=== PATIENT | male | born 1975 | race Caucasian/White ===

== ENCOUNTER 2017-10-25 15:11 | Inpatient (IN) | payer MEDICARE ==
[~2017-10-25] VITALS: Ht 182.9 cm; Wt 106.6 kg
[~2017-10-25 15:11] MED LIST: BAYER CHEWABLE81 MG PO; CARDURA4 MG PO; FUROSEMIDE40 MG PO; HYDRALAZINE HCL25 MG PO; ISOSORBIDE MONO30 M1 PO; LOSARTAN POTASS25 MG PO; LYRICA25 MG PO; NORCO 7.5/325 T1 TA1 PO; NORVASC5 MG PO; NOVOLOG100 U/M1 SC; TOPROL XL100 MG PO
--- NOTE | 2017-10-25 15:30 | NUR ---
RECEIVED PT TO ROOM 2131 FROM ADMISSIONS AAOX4 NAD NOTED NO IV LT AKA SCABBED AREAS NOTED TO RT HAND DRSG INTACT TO RT LOWER LEG
[2017-10-25 15:47] VITALS: BMI 31.9
[2017-10-25 16:18] VITALS: BP 148/77
[2017-10-25 19:00] VITALS: BP 130/90
[2017-10-25 19:09] LABS: BASOPHILS 0.7 % (0-2); EOSINOPHILS 1.8 % (0-7); HEMATOCRIT 33.3 % (42.0-54.0); HEMOGLOBIN 10.1 g/dL (13.5-17.5); IMMATURE GRANULOCYTES 0.2 % (0-5); LYMPHOCYTES 23.2 % (15-50); MCH 26.4 pg (26.0-34.0); MCHC 30.3 g/dL (31.0-37.0); MCV 87.2 fL (80.0-100.0); MEAN PLATELET VOLUME 9.6 fL (7.4-10.4); MONOCYTES 5.6 % (2-11); NEUTROPHILS 68.5 % (40-80); PLATELET COUNT 512 10x3/uL (130-400); RBC 3.82 10x6/uL (4.20-6.10); RDW 15.3 % (11.5-14.5); WBC 10.9 10x3/uL (4.8-10.8)
[2017-10-25 19:24] LABS: INR 1.06 (0.85-1.17); PROTIME 13.7 SECONDS (11.6-15.0)
[2017-10-25 19:33] LABS: ANION GAP 16.8 mmol/L (8-16); CALCIUM 8.7 mg/dL (8.5-10.1); CARBON DIOXIDE 25.7 mmol/L (21.0-32.0); CREATININE - SERUM 6.6 mg/dL (0.6-1.3); POTASSIUM - SERUM 4.5 mmol/L (3.5-5.1)
--- NOTE | 2017-10-25 19:57 | NUR ---
CALL PLAED TO SURESH BLANC TO VERIFY HEPARIN ORDERS.
[2017-10-25] MEDS ORDERED: NEURONTIN 300300 MG PO (20:27)
--- NOTE | 2017-10-25 20:36 | NUR ---
SECOND PAGE OUT TO SURESH BLANC FOR ORDER CLARIFICATION.
--- NOTE | 2017-10-25 21:04 | NUR ---
HEPARIN ORDER CLARIFIED, HEPARIN ORDERED FOR HD, HEPARIN DRIP DC'D.
--- NOTE | 2017-10-25 21:55 | NUR ---
HS MEDS GIVEN WITH FRESHI ICE WATER, BS 115. NO COVERAGE GIVEN PER S/S. HS SNACK PROVIDED.
[2017-10-26 01:21] VITALS: BP 161/86
--- NOTE | 2017-10-26 03:34 | NUR ---
RESTING WITH EYES CLOSED, RESPERATIONS EVEN, NO S/S DISTRESS NOTED.
[2017-10-26 04:00] VITALS: BP 146/72
--- NOTE | 2017-10-26 07:30 | NUR ---
DRSG CHANGED TO RT LOWER LEG AT THIS TIME WOUND BED RED AND BEEFY IN COLOR NO FOUL ODOR OR EXCESSIVE WARMTH NOTED DRESSED WITH NS WTD DRSG PT TOLERATED WELL
--- NOTE | 2017-10-26 07:46 | NUR ---
AM ROUNDING- RECEIVED REPORT FROM DICE MANAGER NURSE CATHY. PT IS CURRENTLY SITTING IN WHEELCHAIR BY DOOR IN ROOM. NPO CURRENTLY FOR PROCEDURE TODAY. ON ROOM AIR. NO MONITOR. IV SEEN TO LEFT HAND THAT IS CURRENTLY SALINE LOCKED. RESERVE RIGHT ARM FOR AVF. LEFT AKA SEEN. PER SPENSER ACHARYA, APPLIANCE REPAIR TECHNICIAN, PT IS SUPPOSE TO GO TO DIALYSIS THIS AM. WILL CONTINUET TO MONITOR AND CONTINUE WITH PLAN OF CARE.
[2017-10-26 12:09] VITALS: BP 150/85
--- NOTE | 2017-10-26 12:12 | NUR ---
PT IN ROOM NOW. FSBS TAKEN ORDERED. BS IS 64. THIS NURSE WENT INTO PTS ROOM. PT IS DRINKING SMALL CONTAINER OF ORANGE JUICE. THIS NURSE STATES TO PT HE IS NPO FOR PROCEDURE. PT REPLIES "I KNOW I JUST DIDN'T KNOW WHAT ELSE TO DO". PT INFORMED ME AT THIS TIME THAT HE FORGOT ABOUT HIS INSULIN PUMP AND ASKED ME IF HE NEEDED TO TAKE IT OFF. THIS NURSE WAS NOT MADE AWARE THAT PT HAS INSULIN PUMP. PT TAKES OFF INSULIN PUMP (PT IS NPO CURRENTLY FOR PROCEDURE). WILL CONTINUE TO MONITOR AND CHECK PTS BS.
[2017-10-26 13:10] VITALS: Ht 182.9 cm; Wt 106.6 kg
--- NOTE | 2017-10-26 14:10 | NUR ---
BEATRIZ, DATA WAREHOUSE ANALYST INFORMED ME TO PRE-OP PT. I WAS GIVING PTS PRE-OP MEDICATIONS THROUGHT IV TO LEFT FOREARM (RESERVE RIGHT ARM FOR AVF), NOTICED IV IS INFILATRATED. OR TECH ON FLOOR AND INFORMED OF THIS. OR TECH ALSO INFORMED PT HAD DRANK ORANGE JUICE PRIOR ON SHIFT (APPROX 3 HOURS AGO) THAT WAS GIVEN TO HIM BY WHEEL MOLDER. EKG DONE. SPENSER WALTON, HUMAN CAPITAL MANAGER DID PRE-OP CHECKLIST. IV FLUID HUNG AND TUBING PRIMED. OR TECH INFORMED PT HAS HAD ROBINUL PO JUST NOT REGLAN NOR PEPCID IV. PT TO OR VIA BED.
[2017-10-26 17:51] VITALS: BP 125/68
--- NOTE | 2017-10-26 18:04 | NUR ---
PT BACK FROM OR VIA BED. PT IS ALERT AND ORIENTED. ON ROOM AIR. SLING SEEN TO PTS LEFT ARM FROM PROCEDURE. OR NURSE HERE IN ROOM STATES PT CAN TAKE SLING OFF. HEPARIN DRIP STARTED PER DR. JEREMIAS CALL. HEPARIN FLOWSHEET STARTED. VITAL SIGNS ARE BEING TAKEN NOW PER PROTOCOL. PT IS SITTING UP ON SIDE OF BED EATING DINNER TRAY. MOTHER IS AT BEDSIDE. WILL AWAIT PT TO GET DONE EATING. WILL DO DRESSING CHANGE PER DR. MCDOWELL NURSING MESSAGE. WILL CONTINUE TO MONITOR.
--- NOTE | 2017-10-26 18:32 | NUR ---
DID DRESSING CHANGE TO RIGHT HAND NECTROTIC AREAS PER DR. MCDOWELL NURSING MESSAGE. CLEANED NECTROTIC AREA TO RIGHT HAND WITH HIBACLENS ENVIRONMENTAL PROFESSIONAL. WASHED WITH GAUZE AND WATER. SILVADENE CREAM APPLIED TO NECTROTIC AREAS ORDERED. COVERED SITE WITH 4X4 GUAZE PADS AND SECURED WITH TAPE. VITAL SIGNS ARE BEING TAKEN PER PROTOCOL. PT DENIES ANY NEED AT THIS TIME. MOTHER IS AT BEDSIDE. WILL CONTINUE TO MONITOR.
[2017-10-26 20:00] VITALS: BP 154/55
--- NOTE | 2017-10-26 21:22 | NUR ---
HS MEDS GIVEN WITH FRESH ICE WATER, BS 155, NO COVERAGE GIVEN AT THIS TIME DUE TO PT BEING NPO ALL DAY FOR PROCEDURE. HS SNACK PROVIDED. NORCO 1 TAB GIVEN FOR C/O PAIN TO RIGHT ARM AND RIGHT LEG.
--- NOTE | 2017-10-27 00:22 | NUR ---
LEAD CYTOGENETIC TECHNOLOGIST AT BED SIDE TO OBTAIN VITALS.
[2017-10-27 01:11] VITALS: BP 151/56
--- NOTE | 2017-10-27 01:44 | NUR ---
PT AWAKE, ALERT, ORIENTED, SITTING UP IN HIS WHEELCHAIR, AUTOMOBILE RADIO REPAIRERDami VIVAS IN THE ROOM. PTS IV HAS BEEN ALERTING R/T BEING OCCLUDED ON PTS SIDE. I FLUSHED IV TO LT AC WITHOUT ANY DIFFICULTY AND RESET PTS HEPARIN GTT. PT DENIES ANY NEEDS. WILL CONTINUE TO MONITOR PT CLOSELY.
--- NOTE | 2017-10-27 03:43 | NUR ---
WASTE MINIMIZATION TECHNICIAN AT BED SIDE, BATH AND LINEN CHANGE COMPLETE.
[2017-10-27 04:29] VITALS: BP 104/76
[2017-10-27 05:21] LABS: BASOPHILS 1.1 % (0-2); EOSINOPHILS 2.7 % (0-7); HEMATOCRIT 30.4 % (42.0-54.0); IMMATURE GRANULOCYTES 0.1 % (0-5); LYMPHOCYTES 26.4 % (15-50); MCH 26.1 pg (26.0-34.0); MCHC 29.6 g/dL (31.0-37.0); MCV 88.1 fL (80.0-100.0); MEAN PLATELET VOLUME 9.9 fL (7.4-10.4); MONOCYTES 6.7 % (2-11); PLATELET COUNT 457 10x3/uL (130-400); RBC 3.45 10x6/uL (4.20-6.10); RDW 15.6 % (11.5-14.5); WBC 9.6 10x3/uL (4.8-10.8)
--- NOTE | 2017-10-27 05:56 | NUR ---
PT SITTING UP IN CHAIR, NORCO 1 TAB GIVEN FOR C/O PAIN TO INCISION. NO OTHER NEEDS EXPRESSED AT THIS TIME, CL IN REACH.
[2017-10-27 05:58] LABS: ANION GAP 18.1 mmol/L (8-16); CALCIUM 8.5 mg/dL (8.5-10.1); CARBON DIOXIDE 23.3 mmol/L (21.0-32.0); CREATININE - SERUM 6.5 mg/dL (0.6-1.3)
[2017-10-27 06:16] LABS: POTASSIUM - SERUM 6.4 mmol/L (3.5-5.1)
--- NOTE | 2017-10-27 07:30 | NUR ---
AM ROUNDS COMPLETED. INTRODUCED MYSELF TO PT PRIMARY RN FOR TODAYS SHIFT. PT A&O SITTING UP IN BED RESTING QUIETLY. PT DENIES ANY CURRENT PAIN OR NEEDS AT THIS TIME. CL IN REACH, BED IN LOWEST, SIDE RAILS X2. WILL CPOC.
[2017-10-27 08:23] VITALS: BP 147/68
--- NOTE | 2017-10-27 09:11 | NUR ---
PT LEAVING FOR DIALYSIS AT THIS TIME.
--- NOTE | 2017-10-27 09:35 | NUR ---
MORNING MEDS HELD PER RENAL EXTRUSION DIE REPAIRER MIKHAIL AND WILL CULTURE WOUND AND DO DRSG CHANGES WHEN HE RETURNS FROM DIALYSIS. NO CURRENT NEEDS.
--- NOTE | 2017-10-27 10:42 | NUR ---
PT CALLED FROM DIALYSIS REQUESTING SOMETHING FOR PAIN. ITS TOO EARLY FOR PRN PAIN MEDICATION. HERE AND GAVE NEW ORDERS FOR PAIN MEDS. WILL BRING TO PT IN DIALYSIS.
--- NOTE | 2017-10-27 13:21 | NUR ---
PT BACK FROM DIALYSIS. INITIATED IVPB VANCOMYCIN AND PROVIDED PT WITH PRN PAIN MEDICATION REQUESTED. PT EATING LUNCH THEN WILL HAVE HIS WOUNDS DRESSED AND MEDICATED. PT VOICED THANKS AND DENIES ANY FURTHER NEEDS AT THIS TIME. CL IN REACH. WILL CPOC.
[2017-10-27 14:34] LABS: ANION GAP 13.9 mmol/L (8-16); CALCIUM 8.8 mg/dL (8.5-10.1); CARBON DIOXIDE 28.6 mmol/L (21.0-32.0); PHOSPHOROUS 5.2 mg/dL (2.5-4.9)
[2017-10-27 14:39] LABS: POTASSIUM - SERUM 4.5 mmol/L (3.5-5.1)
--- NOTE | 2017-10-27 14:52 | NUR ---
WOUND CARE DONE TO R.HAND. SILVER OINTMENT APPLIED TO NECROTIC SCABS TO R.HAND FINGERS AND NITRO BID PLACED ON R.HAND ORDERED. DOPPLERED R.BRACHIAL PULSE. PT SITTING UP IN W/C RESTING. PROVIDED PT WITH PRN PAIN MEDICATION ORDERED. PT HOPING TO BE RELEASED TOMORROW RR NONLABORED ON RA. CL IN REACH. WILL CPOC.
[2017-10-27 16:13] VITALS: BP 101/59
--- NOTE | 2017-10-27 17:57 | NUR ---
FSBS 232 PT REC'D 8 UNITS SS INSULIN. PT SITTING UP IN W/C WATCHING TV AND STATES HE IS FEELING PRETTY GOOD OVERALL. CL IN REACH. NO CURRENT NEEDS. WILL CPOC.
--- NOTE | 2017-10-27 19:14 | NUR ---
PROVIDED PT WITH PRN PAIN MEDICATION. PT RESTING IN W/C WITH FAMILY AT BEDSIDE DENIES ANY FURTHER NEEDS AT THIS TIME. SHIFT REPORT GIVEN TO NIGHTSHIFT NURSE.
[2017-10-27 21:32] VITALS: BP 128/70
--- NOTE | 2017-10-27 23:26 | NUR ---
Dialysis Coordinator: [facility] pm shift. NIDA ARITA.
[2017-10-28 02:21] VITALS: BP 116/63
--- NOTE | 2017-10-28 03:13 | NUR ---
MANAGER RETAIL SALES AT BEDSIDE TO OBTAIN VITALS, CALL LIGHT IN REACH. WILL CONTINUE WITH PLAN OF CARE.
[2017-10-28 05:50] LABS: BASOPHILS 0.8 % (0-2); HEMATOCRIT 31.9 % (42.0-54.0); HEMOGLOBIN 9.5 g/dL (13.5-17.5); IMMATURE GRANULOCYTES 0.1 % (0-5); LYMPHOCYTES 32.6 % (15-50); MCH 25.9 pg (26.0-34.0); MCHC 29.8 g/dL (31.0-37.0); MCV 86.9 fL (80.0-100.0); MEAN PLATELET VOLUME 10.1 fL (7.4-10.4); NEUTROPHILS 54.5 % (40-80); PLATELET COUNT 409 10x3/uL (130-400); RBC 3.67 10x6/uL (4.20-6.10); RDW 15.4 % (11.5-14.5); WBC 9.2 10x3/uL (4.8-10.8)
[2017-10-28 06:05] LABS: ANION GAP 16.2 mmol/L (8-16); CALCIUM 8.6 mg/dL (8.5-10.1); CARBON DIOXIDE 27.5 mmol/L (21.0-32.0); CREATININE - SERUM 6.1 mg/dL (0.6-1.3); POTASSIUM - SERUM 4.7 mmol/L (3.5-5.1)
[2017-10-28 06:19] VITALS: BP 130/70
--- NOTE | 2017-10-28 06:23 | NUR ---
DRESSING CHANGE ON RIGHT CALF. WET TO DRY WITH NS . WOUND IS BEEFY RED WITH LIGHT YELLOW CENTER. NO TUNNELING SEEN. CLEANSED FIRST WITH MICROKLENZ WOUND CLEANSING SPRAY IN ROOM. PATIENT TOLERATED WELL.
[2017-10-28 07:52] VITALS: BP 141/78
--- NOTE | 2017-10-28 08:11 | NUR ---
AM ROUNDS COMPLETED. INTRODUCED MYSELF TO PT PRIMARY RN FOR TODAYS SHIFT. PT SITTING UP ON EDGE OF BED ABOUT TO EAT BREAKFAST. PT REFUSED HIS MORNING BP PILLS AND STATES HE DOESNT TAKE BEFORE DIALYSIS. PT HOPING TO BE DISCHARGED TODAY AFTERWARDS. PROVIDED PT WITH PRN PAIN MEDICATION FOR R.HAND PAIN. PT VOICED THANKS AND DENIES ANY FURTHER NEEDS AT THIS TIME. CL IN REACH, BED IN LOWEST, SIDE RAILS X2. WILL CPOC.
--- NOTE | 2017-10-28 11:43 | NUR ---
AT BEDSIDE AND AGREED TO D/C PT. PT NOT WANTING DIALYSIS TODAY R/T GOING THE PAST 2 DAYS AND HE THINKS HE IS DRY, WILL HOLD OFF TODAY AND RESUME NORMAL SCHEDULE TUTHSAT AT HIS HOME DIALYSIS CENTER. PT VOICED THANKS AND DENIES ANY FURTHER NEEDS. WILL AWAIT DISCHARGE ORDERS.
[2017-10-28 12:30] VITALS: BP 100/53
--- NOTE | 2017-10-28 13:45 | NUR ---
D/C PTS L.AC PIV WITH CATHETER TIP FULLY INTACT. PT COLLECTED HIS BELONGINGS AND HIS SON IS HERE FOR TRANSPORTATION. DISCHARGE TEACHING PROVIDED AND PAPERS SIGNED. PT REC'D HIS COPY ALONG WITH HIS HARD SCRIPT FOR HYDROCODONE. PT DENIES ANY FURTHER QUESTIONS OR CONCERNS AND IS NOW LEAVING.
--- NOTE | 2017-10-28 16:53 | NUR ---
Patient Name: CLINTON PARKER Admission Status: Elective Accout number: [id number] Admission Date: 10-25-2017 : 1975 Admission Diagnosis: Attending: TAN DIAZ Current LOS: 3 Anticipated DC Date: 10-28-2017 Planned Disposition: Home with Home Health Primary Insurance: MEDICARE A & B PLANNED EXTERNAL PROVIDER: [employer] [facility] LATE ENTRY: Discharge Planning Comments: * Is the patient Alert and Oriented? Yes 0 * How many steps to enter\exit or inside your home? NONE 0 * PCP DR. HOWE 0 * Pharmacy [facility], [address] * Preadmission Environment Home with Family 0 * ADLs Independent 0 * Equipment Back Brace Glucometer Shower Chair Wheelchair 0 * Other Equipment NO MEDICAL EQUIPMENT PROVIDER PREFERENCE 0 * List name and contact numbers for known caregivers / representatives who currently or will assist patient after discharge: HALEY PARKER, SPOUSE, 0 * Community resources currently utilized Home Health , OTHER 0 * Please name any agencies selected above. [facility], [facility], TTS, 1200, [facility] 0 * Additional services required to return to the preadmission environment? No 0 * Can the patient safely return to the preadmission environment? Yes 0 * Has this patient been hospitalized within the prior 30 days at any hospital? Yes 0 CM MET WITH PT IN ROOM TO DISCUSS DISCHARGE PLANNING AND NEEDS. PT REPORTS LIVING AT HOME INDEPENDENTLY WITH SPOUSE. PT HAS ALL NEEDED EQUIPMENT AT HOME AND NO MEDICAL EQUIPMENT PROVIDER PREFERENCE. PT HAS [employer] [facility] FOR NURSING WOUND CARE AND SEE'S DR. RICO AT WOUND CARE CLINIC. CM DISCUSSED AVAILABILITY OF HOME HEALTH, REHAB SERVICES AND MEDICAL EQUIPMENT. PT DENIES DISCHARGE NEEDS OTHER THAN [employer] HOME HEALTH RESUMPTION, REPORTS HIS SON WILL PICK HIM UP FOR DISCHARGE HOME. PT REPORTS OUTPATIENT DIALYSIS AT [facility], TTS [address], SON DRIVES HIM. IMPORTANT MESSAGE FROM MEDICARE PROVIDED AND EXPLAINED. CM CALLED [facility] [facility], , NOTIFIED OF NEW WOUND CARE ORDERS, FAXED DISCHARGE INFORMATION TO [employer] AT [phone]; [employer] TO RESUME TOMORROW. Account Services Coordinator: Gilmar Kamara
--- NOTE | 2017-10-31 14:42 | DS ---
PATIENT:CLINTON PARKER :[birth year] MEDICAL RECORD: [id number] DISCHARGE SUMMARY ADMISSION DATE: 10/25/17 DISCHARGE DATE: 10/28/17 REASON FOR ADMISSION: Ischemic right hand with ischemia changes status post banding of his fistula. HOSPITAL COURSE: He is ready to go home, does not want any further dialysis, is on Wednesday, , and Wednesday schedule and I asked him to be careful with his potassium as he did require urgent dialysis twice to remove his potassium. We will continue all of his home medications with the addition of nitro paste for his hand. We will see if we can restart him in database and provide him with hydrocodone for p.r.n. pain. Otherwise, all of his medications are the same. He is alert and oriented times 3. Regular rhythm. S1 and S2. Clear lungs, clear nares. Right hand as noted on admission is unchanged, but pain is controlled. Lab is consistent with ESRD. He will continue renal diet and he will follow up at dialysis. Blood pressure 141/78, 18 respiratory rate, 68 pulse, return to the hospital for any problems. Stable on discharge. More than 30 minutes spent on this discharge. TRANSINT:[id number] Voice Confirmation ID: [id number] DOCUMENT ID: [id number] DIANE DALTON MD at 1442 CC: [id number] DICTATION DATE: 10/28/17 1144 TREE SPECIALIST: 10/28/17 1310 DIS IN 10/28/17 [facility] [address] [place] [address]
--- NOTE | 2017-11-06 15:06 | OP ---
PATIENT NAME: CLINTON PARKER MEDICAL RECORD: [id number] :[birth year] LOCATION:D. D.2132 ADMISSION DATE:10/25/17 SURGEON: JAYASHREE REAL MD DATE OF OPERATION: 10/26/2017 REFERRED BY: Dr. Nolberto Preston. PREOPERATIVE DIAGNOSES: Ischemic gangrenous ulcerations on the fingers of the right hand secondary to steal syndrome from right brachiobasilic AV fistula. POSTOPERATIVE DIAGNOSES: Ischemic gangrenous ulcerations on the fingers of the right hand secondary to steal syndrome from right brachiobasilic AV fistula. ADDITIONAL DIAGNOSES: End-stage renal disease, dependence on hemodialysis and atherosclerotic peripheral arterial disease with gangrene. OPERATION PERFORMED: Fistulogram of right arm brachiobasilic fistula and selective catheterization of the brachial artery and selective brachial arteriogram and Laughlin banding of the AV fistula. SURGEON: Jayashree Real MD ANESTHESIA: Nerve block plus general with LMA per PHONE TRIAGE SPECIALIST. PREOPERATIVE NOTE: Mr. Parker is a 42-year-old white male diabetic with end-stage renal disease and peripheral arterial disease who I believe is still smoking some and I constructed a right upper extremity brachial artery to translocated basilic vein AV fistula about a year ago. Recently, he has had pain in the right hand and developed a gangrenous ulceration on several fingers. Dr. Preston performed angiography on him this week, which demonstrated severe steal and he was admitted to the hospital and I was consulted. He is brought to the operating room at this time to try to salvage the fistula and the hand with a flow restricting procedure. I planned to do a Laughlin banding. This will require repeat fistulogram and repeat selective brachial artery arteriogram before and after the banding and during the banding procedure to guide the extent and number of ligatures to be applied to the basilic vein. Under anesthesia in supine position, the patient was prepped and draped in sterile manner. I examined him with a duplex ultrasound and then placed an obliquely oriented incision directly over the just arterial segment of the fistula. The subcutaneous tissues were divided to expose the fistula, which was carefully dissected circumferentially. I then accessed the fistula in a retrograde direction using micropuncture technique from a site about midway between the arterial and venous ends and I placed a 6-Emirati introducer and advanced a Glidewire through the fistula and passed it upwards into the brachial artery. I passed an angled glide catheter then up into the brachial artery and performed digital subtraction angiography which demonstrated no obstructive lesions or stenoses in the brachial artery and very sluggish poor flow distally in the radial and ulnar arteries with good flow in the fistula. The contrast was injected then through the port with subtraction angiography which completed the examination of the fistula with no specific lesions found. I then inserted a Cordis 4 mm diameter angioplasty balloon and positioned it under fluoroscopy within that just arterial anastomotic segment, it was inflated and held at 10 atmospheres of pressure and a 2-0 Prolene ligature was placed OPERATIVE REPORT [id number] CLINTON PARKER around it and tied snugly. After that, the balloon was deflated and removed and the glide catheter reinserted over the Glidewire and again another selective brachial artery arteriogram performed. This revealed much improved filling of the proximal radial and ulnar arteries. However, filling in the hand was disappointing and this may have been related to the patient's hypotension at that time as an effect of the anesthetic. At any rate, I went ahead and placed a second ligature about a centimeter and a half from the original one again tying it down over the 4-mm balloon inflated and held at 10 atmospheres of pressure. A repeat selective brachial arteriogram was much improved. I did not repeat the specific hand imaging as I felt I done all I could at this point and I think that we will now take more of a evox-oam-kjf attitude. The hardware was removed, the 6-Emirati introducer. The puncture site closed with a iuflgx-ia-xqowc 4-0 Prolene and hemostasis obtained there with a short period of direct pressure. The larger incision was closed with a few interrupted inverted 3-0 Vicryl and then running intracuticular 4-0 Monocryl, Dermabond glue, and dressed with Maxorb AG and Tegaderm with Cavilon skin prep. The patient at that point was awakened and taken to the recovery room in stable condition with a functioning fistula. I did examine him with handheld continuous wave Doppler and noted the presence of polyphasic flow in the radial artery at the wrist. My hand was pink, but I could not detect flow in the palmar arch, this, however, again was when the patient was relatively hypotensive with systolic of about 100-110 under anesthesia. PLAN: We will continue to treat the patient in the hospital. Continue his antibiotics. We will be a little more aggressive with some topical wound care with daily Hibiclens washes and Silvadene dressings, continue the use of nitroglycerin ointment at the base of the fingers, and I will start him on Trental 400 mg 3 times a day and for now, leave him on a continuous heparin drip at 1000 units per hour and we will await and see. There was no blood loss during the procedure and all sponges, instruments, and needles were accounted for. No drain was used and no surgical specimen was submitted. TRANSINT:[id number] Voice Confirmation ID: [id number] DOCUMENT ID: [id number] JAYASHREE REAL MD at 1506 CC: [id number] DICTATION DATE: 10/26/17 170 PAPER CUP MACHINE OPERATOR: 10/26/17 184 DIS IN 10/28/17 [address] [place] [address]
== END 2017-10-28 13:52 | disposition home health service (06) | DRG 252 ==
LOC: D.M2 15:11
PROVIDERS: Internal Medicine Nephrology; Surgery; ADMIT Internal Medicine
PROC: 5A1D70Z Performance of Urinary Filtration, Intermittent, Less than 6 Hours Per Day (ICD-10-PCS; 2017-10-25)
PROC: B3111ZZ Fluoroscopy of Right Brachiocephalic-Subclavian Artery using Low Osmolar Contrast (ICD-10-PCS; 2017-10-26)
PROC: B51W1ZZ Fluoroscopy of Dialysis Shunt/Fistula using Low Osmolar Contrast (ICD-10-PCS; principal; 2017-10-26 14:00)
PROC: 03V Upper Arteries, Restriction (ICD-10-PCS; 2017-10-26 14:00)
DX: T82.898A Other specified complication of vascular prosthetic devices, implants and grafts, initial encounter (principal); N18.6 End stage renal disease; I12.0 Hypertensive chronic kidney disease with stage 5 chronic kidney disease or end stage renal disease; Y83.8 Other surgical procedures as the cause of abnormal reaction of the patient, or of later complication, without mention of misadventure at the time of the procedure; E11.622 Type 2 diabetes mellitus with other skin ulcer; L98.499 Non-pressure chronic ulcer of skin of other sites with unspecified severity; E11.22 Type 2 diabetes mellitus with diabetic chronic kidney disease; Z99.2 Dependence on renal dialysis; Z89.612 Acquired absence of left leg above knee; E11.40 Type 2 diabetes mellitus with diabetic neuropathy, unspecified; Z79.4 Long term (current) use of insulin; E87.5 Hyperkalemia; Z72.0 Tobacco use

== ENCOUNTER 2018-01-16 15:38 | Inpatient (IN) | payer OTHER, MEDICARE ==
[~2018-01-16] VITALS: Ht 182.9 cm; Wt 101.6 kg
--- NOTE | ~2018-01-16 | DS ---
PATIENT:CLINTON PARKER :[birth year] MEDICAL RECORD: [id number] DISCHARGE SUMMARY ADMISSION DATE: 01/16/18 DISCHARGE DATE: 01/27/18 This is a discharge dated 01/27/2018 from inpatient rehab. PRIMARY DIAGNOSIS: Decreased functional ability and ability to provide activities of daily living secondary to a left gmbnu-xkb-cstt amputation. SECONDARY DIAGNOSES: 1. Severe peripheral vascular disease. 2. End-stage renal disease, on hemodialysis. 3. Abdominal cellulitis around peritoneal dialysis catheter site. 4. Diabetes. 5. Congestive heart failure. 6. Subclavian steal syndrome. 7. Right lower extremity wounds. 8. Right upper extremity wounds. 9. Depression. 10. Hypertension. 11. Hyponatremia. 12. Anemia of chronic disease. 13. Peripheral neuropathy. 14. Coronary artery disease. 15. Tobacco abuse. CONSULTS THIS HOSPITALIZATION: 1. Orthopedics with Dr. Thacker. 2. Nephrology following with Dr. Lea. HOSPITAL COURSE: Full H&P is located elsewhere on the chart on this 42-year-old male who was admitted to inpatient rehab for physical therapy and occupational therapy to improve gait, transfer skills, bed mobility, and activities of daily living to a modified independent level. He was evaluated by PT and OT and their plans of care were followed. He required senior living care for observation and assessment, medication administration, as well as wound care and monitoring of surgical incisions. He remained on appropriate home medications during this hospitalization. Fingerstick blood sugars were monitored with appropriate adjustment in medications as needed. He continued on 3 times weekly hemodialysis and was followed by nephrology. He developed some abdominal wall cellulitis and some knee pain. Orthopedics was consulted to evaluate the knee pain. No surgical intervention was recommended. He was cooperative with therapies, progressing towards goals, learning to use the left lower extremity prosthesis. He developed significant purulent drainage from his abdominal catheter site and was transferred back to the acute facility for a higher level of care. He was cooperative with therapies, progressing towards goals prior to discharge. DISCHARGE MEDICATIONS: As per discharge medication reconciliation. DISCHARGE DISPOSITION: The patient is discharged back to the acute hospital. He will continue his current diet and level of activity. He will follow with specialists and primary care in the acute facility. At least 30 minutes was spent in this discharge activity. DISCHARGE SUMMARY REPORT [id number] CLINTON PARKER TRANSINT:[id number] Voice Confirmation ID: [id number] DOCUMENT ID: [id number] Dictated By: CARLA CORREA I have interviewed/examined the above patient and agree with these documented findings. ASIA HOWE MD at 1344 at 1344 CC: [id number] DICTATION DATE: 02/27/181821 DIRECTOR CLINICAL PHARMACOLOGY: 02/28/18 0144 DIS IN 01/27/18 [id number] [place] [address]
--- NOTE | ~2018-01-16 | RHP ---
PATIENT: CLINTON PARKER MEDICAL RECORD: [id number] ACCOUNT: [id number] LOCATION:[facility]1119 : 71 ADMISSION DATE: 01/16/18 REHABILITATION HISTORY AND PHYSICAL EXAMINATION POST ADMISSION PHYSICIAN EXAMINATION POST ADMISSION PHYSICAL EXAMINATION AND HISTORY AND PHYSICAL DATE OF ADMISSION TO THE REHAB: 01/16/2018 ADMITTING DIAGNOSES: Left AKA secondary to severe peripheral arterial and peripheral vascular disease. HISTORY OF PRESENT ILLNESS: The patient is a 42-year-old gentleman admitted for an AKA secondary to peripheral vascular disease and peripheral arterial disease approximately 3 months ago, he developed a nonhealing wound to his left leg that became gangrenous and resulted in a left AKA. He has a past medical history of end-stage renal disease, hemodialysis dependence, diabetes, peripheral vascular disease, peripheral arterial disease and CHF. He has had dialysis 3 times a week here on Wednesday, and Wednesday. Over the past few weeks, he developed some severe pain in his right hand. He developed ulcerations to his second, third and fourth fingers of that hand. He had angiography that showed definitive findings of significant subclavian steal syndrome. Recently he was hospitalized with influenza at [facility]. He has got open wounds on his right lower extremity that [facility] has been dressing and working with. He has also had dressing changes to his right great toe, anterior and posterior right lower extremity and right fourth finger with Dakin's. He is currently wheelchair bound and unable to perform his ADLs without assist. He was recently fitted for and now has a left AKA prosthesis. He is ready to begin intensive therapy to return back to his prior level of function with this and become more independent while maintaining stability and with all of his other conditions he has got going on at this time. COMORBIDITIES: Include diabetes, kidney failure, renal dialysis dependence, end-stage renal disease, steal syndrome, CHF, peripheral arterial disease, peripheral vascular disease, open wounds, depression, history of ID in the past and nicotine dependence. PAST MEDICAL HISTORY: End-stage renal disease, diabetes, hemodialysis dependence, coronary artery disease, peripheral vascular disease and peripheral arterial disease. PAST SURGICAL HISTORY: Includes a left AKA and coronary artery bypass grafting. ALLERGIES: No known drug allergies. MEDICATIONS: Current medications include heparin, he is on a pump. He is on Dakin's to apply to wound areas, Bactroban ointment to apply as necessary, Procrit 40,000 units weekly, Zestril 10 mg daily. He is on Protonix 40 mg b.i.d., Monistat as needed, metoprolol 100 mg b.i.d., Rosalie 10/325 one q.6 hours p.r.n., Colace 100 mg b.i.d., Lyrica 50 mg b.i.d. and MiraLax 17 grams in 8 ounces of water daily. HABITS: Does have a history of tobacco use. HISTORY AND PHYSICAL [id number] CLINTON PARKER FAMILY HISTORY: Noncontributory. SOCIAL HISTORY: The patient hopes to return back home and get back to his prior level of functioning. REVIEW OF SYSTEMS: GENERAL: He does complain of some weakness. HEENT: He denies cold, cough, or congestion. CARDIOVASCULAR: Denies chest pain. PHYSICAL EXAMINATION: VITAL SIGNS: Stable, afebrile. GENERAL: A well-developed gentleman in no acute distress, alert upon exam. HEENT: Normocephalic and atraumatic. Mucosa moist. NECK: Supple. No lymphadenopathy. LUNGS: Clear at this time. HEART: Regular rate and rhythm. ABDOMEN: Benign. EXTREMITIES: He does have some well demarcated ulcerations to his hand and also to his leg. He does have a noted AKA. LABORATORY DATA: White count is 12.1, H&H of 10 and 33, and platelet count was noted to be 363. His sodium is 131, potassium 4.6, BUN and creatinine of 50 and 10, and blood sugar is 100. ASSESSMENT: This is a 42-year-old gentleman who is admitted to rehab with a working diagnosis of left AKA. The patient has potential to make improvement. We instituted the following multidisciplinary therapies including to, but not limited to physical, occupational, respiratory, speech, nutritional services, prosthetics and orthotics. Given his complex condition and risk for more complications, rehabilitation services cannot be provided at a lower level of care such as half-way facility. PLAN: 1. Admit to [facility] for intensive inpatient therapy to include the following disciplines: A. Physical therapy to improve gait, all transfer skills and bed mobility to a modified independent level. B. Occupational therapy to improve activities of daily living to a modified independent level. C. Case management to assist with discharge planning and placement options. D. Nutrition to assist with nutritional needs. E. Rehabilitation nursing to assist in monitoring the patient's underlying medical conditions and to assist with any type of bowel or bladder management. 2. The patient's current medication will be continued. 3. The patient will be placed on standard fall precautions. 4. The patient's estimated length of stay is approximately 7-10 days. 5. Discuss this patient during care team staff meeting this week. TRANSINT:[id number] Voice Confirmation ID: [id number] DOCUMENT ID: [id number] ABIGAIL notes whether there has been none or any medical/functional change since admission: - No change since pre-admission screen. HISTORY AND PHYSICAL [id number] CLINTON PARKER attests patient continues to be appropriate for IRF: - Continues to be appropriate for acute in-patient rehab. ASIA HOWE MD at 1739 CC: [id number] DICTATION DATE: 01/17/18 09 GRAPHICS INTERN: 01/17/18 1106 ADM IN [id number] [place] [address]
[~2018-01-16 15:38] MED LIST changes: +NEURONTIN 300300 MG PO
[2018-01-16 16:01] VITALS: BP 140/73
[2018-01-16] MEDS ORDERED: LYRICA25 MG PO (16:49)
[2018-01-16] MEDS ORDERED: ZESTRIL10 MG PO (16:52)
[2018-01-16] MEDS ORDERED: TOPROL XL100 MG PO (16:52)
[2018-01-16] MEDS ORDERED: TRIPLE PASTE TP (16:53)
[2018-01-16] MEDS ORDERED: COLACE100 MG PO (16:54)
[2018-01-16] MEDS ORDERED: PROTONIX40 MG PO (16:54)
[2018-01-16] MEDS ORDERED: DAKIN'S 0.25%480 ML TOPICAL (16:55)
[2018-01-16] MEDS ORDERED: HYDROCODON-ACE1 EAC9 PO (16:56)
[2018-01-16] MEDS ORDERED: ARANESP40 MCG/ML SQ (16:59)
[2018-01-16 22:49] VITALS: BP 138/78
[2018-01-17 05:44] LABS: BASOPHILS 0.7 % (0-2); EOSINOPHILS 2.9 % (0-7); HEMATOCRIT 33.2 % (42.0-54.0); HEMOGLOBIN 10.4 g/dL (13.5-17.5); IMMATURE GRANULOCYTES 0.2 % (0-5); LYMPHOCYTES 22.7 % (15-50); MCH 25.7 pg (26.0-34.0); MCHC 31.3 g/dL (31.0-37.0); MCV 82.2 fL (80.0-100.0); MEAN PLATELET VOLUME 9.6 fL (7.4-10.4); MONOCYTES 6.4 % (2-11); NEUTROPHILS 67.1 % (40-80); PLATELET COUNT 363 10x3/uL (130-400); RBC 4.04 10x6/uL (4.20-6.10); RDW 16.7 % (11.5-14.5); WBC 12.1 10x3/uL (4.8-10.8)
[2018-01-17 06:03] LABS: ANION GAP 17.7 mmol/L (8-16); CALCIUM 8.5 mg/dL (8.5-10.1); CARBON DIOXIDE 22.9 mmol/L (21.0-32.0); POTASSIUM - SERUM 4.6 mmol/L (3.5-5.1)
[2018-01-17 08:00] VITALS: BP 117/68
[2018-01-17 11:07] VITALS: BMI 30.4
[2018-01-17 22:00] VITALS: BP 121/55
[2018-01-18 08:16] VITALS: BP 124/69
[2018-01-18 21:50] VITALS: BP 126/58
[2018-01-19 06:40] LABS: HEMATOCRIT 33.5 % (42.0-54.0); HEMOGLOBIN 10.3 g/dL (13.5-17.5); IMMATURE GRANULOCYTES 0.3 % (0-5); MCH 25.4 pg (26.0-34.0); MCHC 30.7 g/dL (31.0-37.0); MCV 82.7 fL (80.0-100.0); MONOCYTES 8.9 % (2-11); NEUTROPHILS 60.8 % (40-80); PLATELET COUNT 366 10x3/uL (130-400); RBC 4.05 10x6/uL (4.20-6.10); RDW 16.5 % (11.5-14.5); WBC 11.9 10x3/uL (4.8-10.8)
[2018-01-19 07:06] LABS: ANION GAP 20.1 mmol/L (8-16); CALCIUM 8.3 mg/dL (8.5-10.1); CARBON DIOXIDE 23.2 mmol/L (21.0-32.0); CREATININE - SERUM 8.9 mg/dL (0.6-1.3); POTASSIUM - SERUM 4.3 mmol/L (3.5-5.1)
[2018-01-19 08:07] VITALS: BP 116/67
[2018-01-19 20:42] VITALS: BP 132/69
[2018-01-20 08:00] VITALS: BP 116/57
[2018-01-20 10:50] VITALS: Ht 182.9 cm; Wt 101.6 kg
[2018-01-20 22:09] VITALS: BP 129/67
[2018-01-21 06:36] LABS: ANION GAP 17.8 mmol/L (8-16); CARBON DIOXIDE 22.7 mmol/L (21.0-32.0); CREATININE - SERUM 8.8 mg/dL (0.6-1.3); POTASSIUM - SERUM 4.5 mmol/L (3.5-5.1)
[2018-01-21 06:59] LABS: CALCIUM 7.7 mg/dL (8.5-10.1)
[2018-01-21 07:23] LABS: BASOPHILS 0.7 % (0-2); EOSINOPHILS 2.1 % (0-7); HEMATOCRIT 29.8 % (42.0-54.0); HEMOGLOBIN 9.3 g/dL (13.5-17.5); IMMATURE GRANULOCYTES 0.2 % (0-5); LYMPHOCYTES 20.5 % (15-50); MCH 25.8 pg (26.0-34.0); MCHC 31.2 g/dL (31.0-37.0); MCV 82.5 fL (80.0-100.0); MEAN PLATELET VOLUME 9.8 fL (7.4-10.4); MONOCYTES 11.7 % (2-11); NEUTROPHILS 64.8 % (40-80); PLATELET COUNT 336 10x3/uL (130-400); RBC 3.61 10x6/uL (4.20-6.10); RDW 16.7 % (11.5-14.5); WBC 12.3 10x3/uL (4.8-10.8)
[2018-01-21 08:29] VITALS: BP 115/52
[2018-01-21 20:38] VITALS: BP 109/83
[2018-01-22 07:55] VITALS: BP 119/56
[2018-01-23 01:52] VITALS: BP 117/57
[2018-01-23 05:35] LABS: BASOPHILS 0.5 % (0-2); EOSINOPHILS 1.9 % (0-7); HEMATOCRIT 30.6 % (42.0-54.0); HEMOGLOBIN 9.5 g/dL (13.5-17.5); IMMATURE GRANULOCYTES 0.2 % (0-5); LYMPHOCYTES 17.9 % (15-50); MCH 25.7 pg (26.0-34.0); MCV 82.9 fL (80.0-100.0); MEAN PLATELET VOLUME 9.7 fL (7.4-10.4); MONOCYTES 9.9 % (2-11); NEUTROPHILS 69.6 % (40-80); PLATELET COUNT 344 10x3/uL (130-400); RBC 3.69 10x6/uL (4.20-6.10); RDW 16.6 % (11.5-14.5); WBC 12.8 10x3/uL (4.8-10.8)
[2018-01-23 05:43] LABS: ANION GAP 17.9 mmol/L (8-16); CALCIUM 8.3 mg/dL (8.5-10.1); CREATININE - SERUM 9.3 mg/dL (0.6-1.3); POTASSIUM - SERUM 3.9 mmol/L (3.5-5.1)
[2018-01-23 09:00] VITALS: BP 133/74
[2018-01-24 00:55] VITALS: BP 139/77
[2018-01-24 05:16] LABS: BASOPHILS 0.5 % (0-2); EOSINOPHILS 2.2 % (0-7); HEMATOCRIT 29.9 % (42.0-54.0); HEMOGLOBIN 9.4 g/dL (13.5-17.5); IMMATURE GRANULOCYTES 0.3 % (0-5); LYMPHOCYTES 14.5 % (15-50); MCHC 31.4 g/dL (31.0-37.0); MCV 82.6 fL (80.0-100.0); MEAN PLATELET VOLUME 9.2 fL (7.4-10.4); MONOCYTES 8.9 % (2-11); NEUTROPHILS 73.6 % (40-80); PLATELET COUNT 340 10x3/uL (130-400); RBC 3.62 10x6/uL (4.20-6.10); RDW 16.4 % (11.5-14.5); WBC 11.4 10x3/uL (4.8-10.8)
[2018-01-24 05:36] LABS: ANION GAP 19.7 mmol/L (8-16); CALCIUM 8.3 mg/dL (8.5-10.1); CARBON DIOXIDE 22.9 mmol/L (21.0-32.0); CREATININE - SERUM 10.3 mg/dL (0.6-1.3)
[2018-01-24 05:37] LABS: POTASSIUM - SERUM 4.6 mmol/L (3.5-5.1)
[2018-01-24 19:00] VITALS: BP 138/64
[2018-01-25 09:03] VITALS: BP 126/67
[2018-01-26 02:40] VITALS: BP 135/69
[2018-01-26 05:46] LABS: BASOPHILS 0.8 % (0-2); EOSINOPHILS 2.3 % (0-7); HEMATOCRIT 30.1 % (42.0-54.0); HEMOGLOBIN 9.4 g/dL (13.5-17.5); IMMATURE GRANULOCYTES 0.3 % (0-5); LYMPHOCYTES 27.7 % (15-50); MCH 25.6 pg (26.0-34.0); MCHC 31.2 g/dL (31.0-37.0); MEAN PLATELET VOLUME 9.4 fL (7.4-10.4); NEUTROPHILS 57.9 % (40-80); PLATELET COUNT 340 10x3/uL (130-400); RBC 3.67 10x6/uL (4.20-6.10); RDW 16.1 % (11.5-14.5); WBC 8.8 10x3/uL (4.8-10.8)
[2018-01-26 05:50] LABS: ANION GAP 19.3 mmol/L (8-16); CARBON DIOXIDE 24.1 mmol/L (21.0-32.0); CREATININE - SERUM 9.4 mg/dL (0.6-1.3); POTASSIUM - SERUM 4.4 mmol/L (3.5-5.1)
[2018-01-26 07:50] VITALS: BP 105/51
[2018-01-26 20:18] VITALS: BP 148/65
[2018-01-27 07:43] VITALS: BP 140/71
[2018-01-27] MEDS ORDERED: FLORAJEN3 CAPS460 MG PO (10:48)
[2018-01-27] MEDS ORDERED: AMPICILLIN1.5 G/VIA2 IV (10:51)
[2018-01-27] MEDS ORDERED: GENTAMICIN SULF30 G1 TOPICAL (11:19)
[2018-01-27] MEDS ORDERED: MUPIROCIN22 GM TOPICAL (11:29)
== END 2018-01-27 13:10 | disposition short-term general hospital (02) | DRG 559 ==
LOC: D.REHAB 15:38
PROVIDERS: Emergency Medicine
PROC: 5A1D70Z Performance of Urinary Filtration, Intermittent, Less than 6 Hours Per Day (ICD-10-PCS; principal; 2018-01-17)
DX: Z47.81 Encounter for orthopedic aftercare following surgical amputation (principal); N18.6 End stage renal disease; I12.0 Hypertensive chronic kidney disease with stage 5 chronic kidney disease or end stage renal disease; N17.9 Acute kidney failure, unspecified; Z89.612 Acquired absence of left leg above knee; E11.22 Type 2 diabetes mellitus with diabetic chronic kidney disease; Z99.2 Dependence on renal dialysis; I70.202 Unspecified atherosclerosis of native arteries of extremities, left leg; F17.200 Nicotine dependence, unspecified, uncomplicated; F32.9 Major depressive disorder, single episode, unspecified; I50.9 Heart failure, unspecified; E11.40 Type 2 diabetes mellitus with diabetic neuropathy, unspecified

== ENCOUNTER 2018-01-27 13:34 | Inpatient (IN) | payer MEDICARE, OTHER ==
[~2018-01-27] VITALS: Ht 182.9 cm; Wt 118.2 kg
--- NOTE | ~2018-01-27 | OP ---
PATIENT NAME: CLINTON PARKER MEDICAL RECORD: [id number] :71 LOCATION:D.M2 D.2113 ADMISSION DATE:01/27/18 SURGEON: JAYASHREE REAL MD DATE OF OPERATION: 01/28/2018 REFERRING PHYSICIAN: Porfirio Heller MD PREOPERATIVE DIAGNOSIS: Infected peritoneal dialysis catheter and tunnel with surrounding mass. POSTOPERATIVE DIAGNOSIS: Infected peritoneal dialysis catheter and tunnel with surrounding mass. OPERATION PERFORMED: Removal of peritoneal dialysis catheter with culture of catheter tract purulent fluid and excision of mass of necrotic fat adjacent to the tunnel and application of a wound VAC dressing. SURGEON: Jayashree Real MD ANESTHESIA: General with LMA per PALEOBOTANIST. PREOPERATIVE NOTE: This 42-year-old white male patient, diabetic, on chronic dialysis, has suffered persistent infection of his peritoneal dialysis catheter, has purulent discharge along at the exit site and a baseball sized mass involving the subcutaneous tissues around the catheter tract. Fortunately, he has an elevated translocated basilic vein fistula in right arm, which was functioning well for hemodialysis. He is brought to the operating room at this time to remove the catheter from his abdomen. We will drain whatever abscess is present, etc. Under anesthesia in supine position, the patient was prepped and draped in sterile manner. I made a transverse incision across the abdomen about 5 cm in length and cut down on the catheter tract with electrocautery dissection. I found a chronically infected catheter tract with granulation tissue and purulent white fluid with no odor. This was swabbed for cultures for aerobic and anaerobic organisms and I continued dissecting down to the rectus sheath. I identified the shallow and a deeper Dacron felt cuff. These were freed and then the catheter was removed entirely and subsequently discarded. I used electrocautery and sharp dissection to excise as much of the indurated fat from around the area. I believe this is fat necrosis. There was no large abscess. That excised fat necrosis tissue was sent for histology. Hemostasis was obtained in the wound with electrocautery. The wound was irrigated with 0.5% Dakin solution and then a VAC Versa closed vacuum drain dressing was applied. I plan to change it on Wednesday and until then will do Dakin's irrigations as administered by the wound care nurse who has been consulted and we will see the patient in the recovery room. I anticipate he may be able to go home first of next week and certainly will need case management to arrange for home health to take over his wound care once he is discharged. TRANSINT:[id number] Voice Confirmation ID: [id number] DOCUMENT ID: [id number] OPERATIVE REPORT [id number] CLINTON PARKER JAMES MD at 1459 CC: PORFIRIO HELLER [id number] DICTATION DATE: 01/28/18 1319 BAKERY WORKER: 01/28/18 1438 ADM IN [id number] [place] [address]
[~2018-01-27 13:34] MED LIST changes: +AMPICILLIN1.5 G/VIA2 IV; +ARANESP40 MCG/ML SQ; +COLACE100 MG PO; +DAKIN'S 0.25%480 ML TOPICAL; +FLORAJEN3 CAPS460 MG PO; +GENTAMICIN SULF30 G1 TOPICAL; +HYDROCODON-ACE1 EAC9 PO; +MUPIROCIN22 GM TOPICAL; +PROTONIX40 MG PO; +TRIPLE PASTE TP; +ZESTRIL10 MG PO
[2018-01-27 14:59] VITALS: BP 139/70
[2018-01-27 17:18] VITALS: BP 121/63; Ht 182.9 cm; Wt 118.2 kg
[2018-01-27 20:59] VITALS: BP 136/69
[2018-01-28 00:36] VITALS: BP 157/72
[2018-01-28 05:17] VITALS: BP 148/78
[2018-01-28 05:36] LABS: BASOPHILS 0.9 % (0-2); EOSINOPHILS 2.9 % (0-7); HEMATOCRIT 30.8 % (42.0-54.0); HEMOGLOBIN 9.4 g/dL (13.5-17.5); IMMATURE GRANULOCYTES 0.1 % (0-5); LYMPHOCYTES 24.1 % (15-50); MCH 25.3 pg (26.0-34.0); MCHC 30.5 g/dL (31.0-37.0); MEAN PLATELET VOLUME 9.8 fL (7.4-10.4); MONOCYTES 6.3 % (2-11); NEUTROPHILS 65.7 % (40-80); PLATELET COUNT 374 10x3/uL (130-400); RBC 3.71 10x6/uL (4.20-6.10); RDW 16.2 % (11.5-14.5); WBC 10.4 10x3/uL (4.8-10.8)
[2018-01-28 05:41] LABS: APTT 31.6 SECONDS (22.8-39.4); INR 1.05 (0.85-1.17); PROTIME 13.3 SECONDS (11.6-15.0)
[2018-01-28 05:46] LABS: ANION GAP 21.3 mmol/L (8-16); CARBON DIOXIDE 22.1 mmol/L (21.0-32.0); CREATININE - SERUM 10.1 mg/dL (0.6-1.3); POTASSIUM - SERUM 4.4 mmol/L (3.5-5.1)
[2018-01-28 08:39] VITALS: BP 153/69
[2018-01-28 16:53] VITALS: BP 138/75
[2018-01-28 20:38] VITALS: BP 125/66
[2018-01-29 00:18] VITALS: BP 155/75
[2018-01-29 05:48] VITALS: BP 154/68
[2018-01-29 09:08] VITALS: BP 140/70
[2018-01-29 09:23] LABS: BASOPHILS 1.3 % (0-2); EOSINOPHILS 1.9 % (0-7); HEMATOCRIT 35.1 % (42.0-54.0); HEMOGLOBIN 10.8 g/dL (13.5-17.5); IMMATURE GRANULOCYTES 0.2 % (0-5); LYMPHOCYTES 24.9 % (15-50); MCHC 30.8 g/dL (31.0-37.0); MCV 84.6 fL (80.0-100.0); MEAN PLATELET VOLUME 9.7 fL (7.4-10.4); MONOCYTES 5.8 % (2-11); NEUTROPHILS 65.9 % (40-80); RBC 4.15 10x6/uL (4.20-6.10); RDW 16.2 % (11.5-14.5); WBC 10.1 10x3/uL (4.8-10.8)
[2018-01-29 09:26] LABS: PLATELET COUNT 465 10x3/uL (130-400)
[2018-01-29 09:31] LABS: ANION GAP 21.6 mmol/L (8-16); CALCIUM 9.3 mg/dL (8.5-10.1); CARBON DIOXIDE 22.6 mmol/L (21.0-32.0); CREATININE - SERUM 8.1 mg/dL (0.6-1.3); POTASSIUM - SERUM 4.2 mmol/L (3.5-5.1)
[2018-01-29 11:52] VITALS: BP 128/61
[2018-01-29 16:32] VITALS: BP 133/45
[2018-01-29 20:00] VITALS: BP 143/72
[2018-01-30 04:00] VITALS: BP 127/59
[2018-01-30 06:47] LABS: BASOPHILS 0.9 % (0-2); HEMATOCRIT 33.9 % (42.0-54.0); HEMOGLOBIN 10.3 g/dL (13.5-17.5); IMMATURE GRANULOCYTES 0.2 % (0-5); LYMPHOCYTES 27.6 % (15-50); MCH 25.4 pg (26.0-34.0); MCHC 30.4 g/dL (31.0-37.0); MCV 83.5 fL (80.0-100.0); MONOCYTES 9.6 % (2-11); NEUTROPHILS 58.7 % (40-80); PLATELET COUNT 426 10x3/uL (130-400); RBC 4.06 10x6/uL (4.20-6.10); RDW 16.2 % (11.5-14.5)
[2018-01-30 06:57] LABS: ANION GAP 21.4 mmol/L (8-16); CALCIUM 8.8 mg/dL (8.5-10.1); CARBON DIOXIDE 24.9 mmol/L (21.0-32.0); CREATININE - SERUM 9.2 mg/dL (0.6-1.3); POTASSIUM - SERUM 4.3 mmol/L (3.5-5.1)
[2018-01-30 08:59] VITALS: BP 164/80
[2018-01-30 13:10] VITALS: BP 127/56
[2018-01-30 15:55] VITALS: BP 144/64
[2018-01-30 22:47] VITALS: BP 142/68
[2018-01-31 01:33] VITALS: BP 163/71
[2018-01-31 05:53] VITALS: BP 160/63
[2018-01-31 06:56] LABS: BASOPHILS 0.6 % (0-2); EOSINOPHILS 3.1 % (0-7); HEMATOCRIT 34.1 % (42.0-54.0); HEMOGLOBIN 10.4 g/dL (13.5-17.5); IMMATURE GRANULOCYTES 0.2 % (0-5); LYMPHOCYTES 25.3 % (15-50); MCH 25.1 pg (26.0-34.0); MCHC 30.5 g/dL (31.0-37.0); MCV 82.4 fL (80.0-100.0); MEAN PLATELET VOLUME 9.9 fL (7.4-10.4); MONOCYTES 8.3 % (2-11); NEUTROPHILS 62.5 % (40-80); PLATELET COUNT 405 10x3/uL (130-400); RBC 4.14 10x6/uL (4.20-6.10); RDW 16.1 % (11.5-14.5); WBC 9.7 10x3/uL (4.8-10.8)
[2018-01-31 07:06] LABS: ANION GAP 20.6 mmol/L (8-16); CALCIUM 8.8 mg/dL (8.5-10.1); CARBON DIOXIDE 23.9 mmol/L (21.0-32.0); CREATININE - SERUM 10.4 mg/dL (0.6-1.3); POTASSIUM - SERUM 4.5 mmol/L (3.5-5.1)
[2018-01-31 08:07] VITALS: BP 144/72
[2018-01-31 15:22] VITALS: BP 137/75
[2018-01-31 19:00] VITALS: BP 156/69
[2018-02-01] VITALS: BP 168/76
[2018-02-01 04:00] VITALS: BP 181/79
[2018-02-01 05:31] LABS: BASOPHILS 0.9 % (0-2); EOSINOPHILS 2.9 % (0-7); HEMATOCRIT 32.2 % (42.0-54.0); IMMATURE GRANULOCYTES 0.3 % (0-5); LYMPHOCYTES 19.7 % (15-50); MCH 25.9 pg (26.0-34.0); MCHC 31.1 g/dL (31.0-37.0); MCV 83.4 fL (80.0-100.0); MEAN PLATELET VOLUME 10.1 fL (7.4-10.4); MONOCYTES 7.5 % (2-11); NEUTROPHILS 68.7 % (40-80); PLATELET COUNT 358 10x3/uL (130-400); RBC 3.86 10x6/uL (4.20-6.10); RDW 16.4 % (11.5-14.5); WBC 10.3 10x3/uL (4.8-10.8)
[2018-02-01 05:45] LABS: ANION GAP 20.8 mmol/L (8-16); CALCIUM 8.8 mg/dL (8.5-10.1); CARBON DIOXIDE 23.1 mmol/L (21.0-32.0); CREATININE - SERUM 8.2 mg/dL (0.6-1.3); PHOSPHOROUS 8.6 mg/dL (2.5-4.9); POTASSIUM - SERUM 4.9 mmol/L (3.5-5.1)
[2018-02-01 08:02] VITALS: BP 113/69
[2018-02-01 11:34] VITALS: BP 122/70
[2018-02-01 16:13] VITALS: BP 126/85
== END 2018-02-01 18:39 | disposition home health service (06) | DRG 901 ==
LOC: OBSVTIME 13:34 → D.M2 13:34
PROVIDERS: Internal Medicine Nephrology; Surgery
PROC: 0JB80ZZ Excision of Abdomen Subcutaneous Tissue and Fascia, Open Approach (ICD-10-PCS; 2018-01-28)
PROC: 5A1D70Z Performance of Urinary Filtration, Intermittent, Less than 6 Hours Per Day (ICD-10-PCS; 2018-01-28)
PROC: 0WPG03Z Removal of Infusion Device from Peritoneal Cavity, Open Approach (ICD-10-PCS; principal; 2018-01-28 13:00)
DX: T85.71XA Infection and inflammatory reaction due to peritoneal dialysis catheter, initial encounter (principal); N18.6 End stage renal disease; I12.0 Hypertensive chronic kidney disease with stage 5 chronic kidney disease or end stage renal disease; L02.211 Cutaneous abscess of abdominal wall; Y83.8 Other surgical procedures as the cause of abnormal reaction of the patient, or of later complication, without mention of misadventure at the time of the procedure; E11.22 Type 2 diabetes mellitus with diabetic chronic kidney disease; Z99.2 Dependence on renal dialysis; Z79.4 Long term (current) use of insulin; I25.10 Atherosclerotic heart disease of native coronary artery without angina pectoris; E11.40 Type 2 diabetes mellitus with diabetic neuropathy, unspecified; Z95.1 Presence of aortocoronary bypass graft; Z89.612 Acquired absence of left leg above knee; Z72.0 Tobacco use; B95.61 Methicillin susceptible Staphylococcus aureus infection as the cause of diseases classified elsewhere

== ENCOUNTER 2018-02-26 17:55 | Inpatient (IN) | payer OTHER, MEDICARE ==
[~2018-02-26] VITALS: Ht 182.9 cm; Wt 106.7 kg
[2018-02-26 18:36] LABS: BASOPHILS 1.3 % (0-2); EOSINOPHILS 3.1 % (0-7); HEMATOCRIT 35.5 % (42.0-54.0); IMMATURE GRANULOCYTES 0.1 % (0-5); LYMPHOCYTES 20.6 % (15-50); MCH 25.5 pg (26.0-34.0); MCV 82.4 fL (80.0-100.0); MEAN PLATELET VOLUME 10.4 fL (7.4-10.4); NEUTROPHILS 68.9 % (40-80); PLATELET COUNT 317 10x3/uL (130-400); RBC 4.31 10x6/uL (4.20-6.10); RDW 15.1 % (11.5-14.5); WBC 10.1 10x3/uL (4.8-10.8)
[2018-02-26 18:48] LABS: ALBUMIN 2.8 g/dL (3.4-5.0); ANION GAP 17.7 mmol/L (8-16); BILIRUBIN - TOTAL 0.29 mg/dL (0.2-1.3); CALCIUM 8.4 mg/dL (8.5-10.1); CARBON DIOXIDE 23.6 mmol/L (21.0-32.0); CREATININE - SERUM 9.1 mg/dL (0.6-1.3); POTASSIUM - SERUM 4.3 mmol/L (3.5-5.1); PROTEIN - SERUM 7.2 g/dL (6.4-8.2)
[2018-02-26 18:54] LABS: PROTIME 12.8 SECONDS (11.6-15.0)
[2018-02-26 19:45] LABS: TROPONIN-I 0.033 ng/mL (0.000-0.060)
[2018-02-26 22:25] VITALS: BP 168/84; BMI 34.0
[2018-02-27 01:52] VITALS: BP 130/63
[2018-02-27 05:37] VITALS: BP 129/73
[2018-02-27 09:01] VITALS: BP 115/79
[2018-02-27 13:03] VITALS: BP 151/82
[2018-02-27 17:15] VITALS: BP 136/73
[2018-02-27 21:25] VITALS: BP 151/77
[2018-02-28 00:35] VITALS: BP 140/63
[2018-02-28 04:51] LABS: EOSINOPHILS 3.5 % (0-7); HEMATOCRIT 35.6 % (42.0-54.0); HEMOGLOBIN 11.1 g/dL (13.5-17.5); IMMATURE GRANULOCYTES 0.2 % (0-5); LYMPHOCYTES 17.8 % (15-50); MCH 25.8 pg (26.0-34.0); MCHC 31.2 g/dL (31.0-37.0); MCV 82.6 fL (80.0-100.0); MEAN PLATELET VOLUME 10.7 fL (7.4-10.4); MONOCYTES 7.6 % (2-11); NEUTROPHILS 69.9 % (40-80); PLATELET COUNT 379 10x3/uL (130-400); RBC 4.31 10x6/uL (4.20-6.10); RDW 15.3 % (11.5-14.5); WBC 12.6 10x3/uL (4.8-10.8)
[2018-02-28 05:05] LABS: ANION GAP 19.9 mmol/L (8-16); CALCIUM 8.3 mg/dL (8.5-10.1); CARBON DIOXIDE 23.3 mmol/L (21.0-32.0); CREATININE - SERUM 10.5 mg/dL (0.6-1.3)
[2018-02-28 05:11] LABS: POTASSIUM - SERUM 5.2 mmol/L (3.5-5.1)
[2018-02-28 05:41] VITALS: BP 140/78
[2018-02-28 08:39] VITALS: BP 111/54
[2018-02-28 13:37] VITALS: Ht 182.9 cm; Wt 106.7 kg
[2018-02-28 16:55] VITALS: BP 114/70
[2018-02-28 21:09] VITALS: BP 100/51
[2018-03-01] VITALS: BP 96/48
[2018-03-01 05:12] LABS: BASOPHILS 1.3 % (0-2); EOSINOPHILS 1.3 % (0-7); HEMATOCRIT 34.6 % (42.0-54.0); HEMOGLOBIN 10.8 g/dL (13.5-17.5); IMMATURE GRANULOCYTES 0.2 % (0-5); LYMPHOCYTES 18.2 % (15-50); MCH 25.7 pg (26.0-34.0); MCHC 31.2 g/dL (31.0-37.0); MCV 82.4 fL (80.0-100.0); MEAN PLATELET VOLUME 10.8 fL (7.4-10.4); MONOCYTES 8.4 % (2-11); NEUTROPHILS 70.6 % (40-80); PLATELET COUNT 315 10x3/uL (130-400); RDW 15.7 % (11.5-14.5); WBC 12.4 10x3/uL (4.8-10.8)
[2018-03-01 05:27] LABS: ANION GAP 19.7 mmol/L (8-16); CALCIUM 8.5 mg/dL (8.5-10.1); CARBON DIOXIDE 23.1 mmol/L (21.0-32.0); CREATININE - SERUM 8.7 mg/dL (0.6-1.3); POTASSIUM - SERUM 5.8 mmol/L (3.5-5.1); VANCOMYCIN - RANDOM 11.3 ug/mL (10.0-20.0)
[2018-03-01 06:16] VITALS: BP 126/75
[2018-03-01 09:07] VITALS: BP 109/59
[2018-03-01 12:15] VITALS: BP 110/60
[2018-03-01 16:34] VITALS: BP 100/45
[2018-03-01 21:30] VITALS: BP 102/57
[2018-03-02 01:12] VITALS: BP 110/56
[2018-03-02 05:15] LABS: BASOPHILS 0.9 % (0-2); EOSINOPHILS 0.9 % (0-7); HEMATOCRIT 34.9 % (42.0-54.0); HEMOGLOBIN 10.8 g/dL (13.5-17.5); IMMATURE GRANULOCYTES 0.1 % (0-5); LYMPHOCYTES 13.6 % (15-50); MCH 25.7 pg (26.0-34.0); MCHC 30.9 g/dL (31.0-37.0); MCV 83.1 fL (80.0-100.0); MEAN PLATELET VOLUME 10.3 fL (7.4-10.4); MONOCYTES 6.2 % (2-11); NEUTROPHILS 78.3 % (40-80); PLATELET COUNT 324 10x3/uL (130-400); RDW 15.6 % (11.5-14.5); WBC 13.9 10x3/uL (4.8-10.8)
[2018-03-02 05:21] VITALS: BP 116/48
[2018-03-02 05:37] LABS: ANION GAP 23.7 mmol/L (8-16); CALCIUM 8.9 mg/dL (8.5-10.1); CARBON DIOXIDE 20.5 mmol/L (21.0-32.0); CREATININE - SERUM 10.6 mg/dL (0.6-1.3); VANCOMYCIN - RANDOM 24.5 ug/mL (10.0-20.0)
[2018-03-02 05:40] LABS: POTASSIUM - SERUM 6.2 mmol/L (3.5-5.1)
[2018-03-02 08:09] VITALS: BP 119/65
[2018-03-02 15:36] VITALS: BP 114/63
[2018-03-02 20:11] VITALS: BP 128/70
[2018-03-03 05:11] LABS: EOSINOPHILS 2.8 % (0-7); HEMATOCRIT 33.7 % (42.0-54.0); HEMOGLOBIN 10.4 g/dL (13.5-17.5); IMMATURE GRANULOCYTES 0.1 % (0-5); LYMPHOCYTES 21.8 % (15-50); MCH 25.3 pg (26.0-34.0); MCHC 30.9 g/dL (31.0-37.0); MONOCYTES 13.2 % (2-11); NEUTROPHILS 61.1 % (40-80); RBC 4.11 10x6/uL (4.20-6.10); RDW 15.2 % (11.5-14.5); WBC 10.8 10x3/uL (4.8-10.8)
[2018-03-03 05:12] LABS: PLATELET COUNT 248 10x3/uL (130-400)
[2018-03-03 05:27] LABS: CALCIUM 8.4 mg/dL (8.5-10.1); CREATININE - SERUM 8.1 mg/dL (0.6-1.3); VANCOMYCIN - RANDOM 17.9 ug/mL (10.0-20.0)
[2018-03-03 05:33] VITALS: BP 95/64
[2018-03-03 05:35] LABS: ANION GAP 17.4 mmol/L (8-16); CARBON DIOXIDE 27.1 mmol/L (21.0-32.0); POTASSIUM - SERUM 4.5 mmol/L (3.5-5.1)
[2018-03-03 08:33] VITALS: BP 141/61
[2018-03-03] MEDS ORDERED: BACTRIM 400-801 TAB PO (12:00)
[2018-03-03 13:08] VITALS: BP 147/77
== END 2018-03-03 14:35 | disposition home health service (06) | DRG 602 ==
LOC: D.ER 17:55 → D.EDHOLD 19:46 → D.M2 19:46
PROVIDERS: Emergency Medicine; Internal Medicine Nephrology; Nurse Practitioner Family
PROC: 5A1D70Z Performance of Urinary Filtration, Intermittent, Less than 6 Hours Per Day (ICD-10-PCS; principal; 2018-02-28)
DX: L03.115 Cellulitis of right lower limb (principal); N18.6 End stage renal disease; I12.0 Hypertensive chronic kidney disease with stage 5 chronic kidney disease or end stage renal disease; E10.22 Type 1 diabetes mellitus with diabetic chronic kidney disease; E10.65 Type 1 diabetes mellitus with hyperglycemia; Z99.2 Dependence on renal dialysis; Z79.4 Long term (current) use of insulin; E10.40 Type 1 diabetes mellitus with diabetic neuropathy, unspecified; I25.10 Atherosclerotic heart disease of native coronary artery without angina pectoris; Z95.1 Presence of aortocoronary bypass graft; Z89.612 Acquired absence of left leg above knee; S31.103D Unspecified open wound of abdominal wall, right lower quadrant without penetration into peritoneal cavity, subsequent encounter; Y84.8 Other medical procedures as the cause of abnormal reaction of the patient, or of later complication, without mention of misadventure at the time of the procedure

== ENCOUNTER 2018-04-24 11:39 | Inpatient (IN) | payer OTHER, MEDICARE ==
[~2018-04-24] VITALS: Ht 182.9 cm; Wt 102.7 kg
[~2018-04-24 11:39] MED LIST changes: +BACTRIM 400-801 TAB PO
[2018-04-24 12:50] LABS: BASOPHILS 0.6 % (0-2); EOSINOPHILS 1.7 % (0-7); HEMATOCRIT 30.2 % (42.0-54.0); HEMOGLOBIN 9.6 g/dL (13.5-17.5); IMMATURE GRANULOCYTES 0.1 % (0-5); MCH 26.1 pg (26.0-34.0); MCHC 31.8 g/dL (31.0-37.0); MCV 82.1 fL (80.0-100.0); MEAN PLATELET VOLUME 9.6 fL (7.4-10.4); MONOCYTES 7.9 % (2-11); NEUTROPHILS 75.7 % (40-80); PLATELET COUNT 270 10x3/uL (130-400); RBC 3.68 10x6/uL (4.20-6.10); RDW 15.9 % (11.5-14.5); WBC 9.5 10x3/uL (4.8-10.8)
[2018-04-24 12:59] LABS: ALBUMIN 3.1 g/dL (3.4-5.0); ANION GAP 21.5 mmol/L (8-16); BILIRUBIN - TOTAL 0.39 mg/dL (0.2-1.3); CALCIUM 7.4 mg/dL (8.5-10.1); POTASSIUM - SERUM 5.5 mmol/L (3.5-5.1); PROTEIN - SERUM 6.9 g/dL (6.4-8.2)
[2018-04-24 22:35] VITALS: BP 160/71; BMI 24.4
[2018-04-25] VITALS: BP 158/70
[2018-04-25 04:00] VITALS: BP 155/68
[2018-04-25 05:10] LABS: BASOPHILS 0.9 % (0-2); EOSINOPHILS 1.5 % (0-7); HEMATOCRIT 29.3 % (42.0-54.0); HEMOGLOBIN 9.2 g/dL (13.5-17.5); IMMATURE GRANULOCYTES 0.1 % (0-5); MCHC 31.4 g/dL (31.0-37.0); MCV 82.8 fL (80.0-100.0); MEAN PLATELET VOLUME 9.6 fL (7.4-10.4); MONOCYTES 4.5 % (2-11); PLATELET COUNT 273 10x3/uL (130-400); RBC 3.54 10x6/uL (4.20-6.10); RDW 16.1 % (11.5-14.5)
[2018-04-25 05:22] LABS: ANION GAP 22.3 mmol/L (8-16); CALCIUM 7.7 mg/dL (8.5-10.1); CARBON DIOXIDE 22.5 mmol/L (21.0-32.0); CREATININE - SERUM 11.6 mg/dL (0.6-1.3); POTASSIUM - SERUM 5.8 mmol/L (3.5-5.1)
[2018-04-25 08:11] VITALS: BP 145/66
[2018-04-25 12:24] VITALS: BP 144/73
[2018-04-25 13:36] VITALS: Ht 182.9 cm; Wt 102.7 kg
[2018-04-25 15:31] VITALS: BP 158/72
[2018-04-25 20:00] VITALS: BP 155/94
[2018-04-26 06:11] LABS: BASOPHILS 1.7 % (0-2); EOSINOPHILS 1.1 % (0-7); HEMATOCRIT 32.6 % (42.0-54.0); HEMOGLOBIN 10.4 g/dL (13.5-17.5); IMMATURE GRANULOCYTES 0.2 % (0-5); LYMPHOCYTES 16.2 % (15-50); MCH 26.1 pg (26.0-34.0); MCHC 31.9 g/dL (31.0-37.0); MCV 81.7 fL (80.0-100.0); MEAN PLATELET VOLUME 9.5 fL (7.4-10.4); MONOCYTES 12.9 % (2-11); NEUTROPHILS 67.9 % (40-80); PLATELET COUNT 310 10x3/uL (130-400); RBC 3.99 10x6/uL (4.20-6.10); RDW 16.2 % (11.5-14.5); WBC 6.6 10x3/uL (4.8-10.8)
[2018-04-26 06:36] LABS: ANION GAP 21.3 mmol/L (8-16); CALCIUM 8.9 mg/dL (8.5-10.1); CARBON DIOXIDE 27.8 mmol/L (21.0-32.0); CREATININE - SERUM 8.2 mg/dL (0.6-1.3); POTASSIUM - SERUM 4.1 mmol/L (3.5-5.1)
[2018-04-26 12:35] VITALS: BP 138/101
[2018-04-26 15:47] VITALS: BP 113/61
[2018-04-26 20:00] VITALS: BP 96/69
[2018-04-27] VITALS: BP 129/69
[2018-04-27 04:00] VITALS: BP 151/75
[2018-04-27 06:24] LABS: BASOPHILS 0.9 % (0-2); EOSINOPHILS 1.8 % (0-7); HEMATOCRIT 32.1 % (42.0-54.0); HEMOGLOBIN 10.1 g/dL (13.5-17.5); IMMATURE GRANULOCYTES 0.2 % (0-5); MCH 26.2 pg (26.0-34.0); MCHC 31.5 g/dL (31.0-37.0); MCV 83.4 fL (80.0-100.0); MEAN PLATELET VOLUME 10.1 fL (7.4-10.4); MONOCYTES 8.8 % (2-11); NEUTROPHILS 66.3 % (40-80); PLATELET COUNT 351 10x3/uL (130-400); RBC 3.85 10x6/uL (4.20-6.10); RDW 16.4 % (11.5-14.5)
[2018-04-27 06:32] LABS: WBC 9.6 10x3/uL (4.8-10.8)
[2018-04-27 06:46] LABS: ANION GAP 18.3 mmol/L (8-16); CALCIUM 8.7 mg/dL (8.5-10.1); CREATININE - SERUM 6.9 mg/dL (0.6-1.3); POTASSIUM - SERUM 4.3 mmol/L (3.5-5.1); VANCOMYCIN - RANDOM 6.8 ug/mL (10.0-20.0)
[2018-04-27 08:14] LABS: APPEARANCE HAZY (CLEAR); COLOR YELLOW (YELLOW); GLUCOSE 500 mg/dL (NEGATIVE); NITRITE NEGATIVE (NEGATIVE); PROTEIN 3+ mg/dL (NEGATIVE); SPECIFIC GRAVITY 1.015 (1.005-1.020)
[2018-04-27 08:15] LABS: BACTERIA MODERATE /hpf (NONE SEEN); BILIRUBIN NEGATIVE (NEGATIVE); EPITHELIAL CELLS 0-5 /hpf (0-5); GRANULAR CAST 0-5 /lpf (NONE SEEN); KETONE NEGATIVE (NEGATIVE); MUCUS <1+ /lpf (NONE SEEN); RED CELLS - URINE 0-5 /hpf (0-5); UROBILINOGEN NORMAL (NORMAL)
[2018-04-27 08:40] VITALS: BP 89/68
[2018-04-27 12:48] VITALS: BP 166/69
[2018-04-27] MEDS ORDERED: LANTUS INSULIN10 ML SC (15:26)
[2018-04-27 16:15] VITALS: BP 134/68
== END 2018-04-27 18:00 | disposition home health service (06) | DRG 602 ==
LOC: D.ER 11:39 → D.M2 17:00 → D.EDHOLD 17:00 → OBSVTIME 17:07 → D.M2 17:46
PROVIDERS: Emergency Medicine; Internal Medicine Nephrology
PROC: 5A1D70Z Performance of Urinary Filtration, Intermittent, Less than 6 Hours Per Day (ICD-10-PCS; principal; 2018-04-25)
DX: L03.115 Cellulitis of right lower limb (principal); N18.6 End stage renal disease; I12.0 Hypertensive chronic kidney disease with stage 5 chronic kidney disease or end stage renal disease; E11.649 Type 2 diabetes mellitus with hypoglycemia without coma; E11.22 Type 2 diabetes mellitus with diabetic chronic kidney disease; E11.40 Type 2 diabetes mellitus with diabetic neuropathy, unspecified; Z99.2 Dependence on renal dialysis; Z79.4 Long term (current) use of insulin; I25.10 Atherosclerotic heart disease of native coronary artery without angina pectoris; Z89.612 Acquired absence of left leg above knee; X58.XXXA Exposure to other specified factors, initial encounter; S82.301A Unspecified fracture of lower end of right tibia, initial encounter for closed fracture; S92.351A Displaced fracture of fifth metatarsal bone, right foot, initial encounter for closed fracture; Z95.1 Presence of aortocoronary bypass graft; Z72.0 Tobacco use; E87.5 Hyperkalemia

== ENCOUNTER 2019-02-12 06:56 | Emergency (ER) | payer OTHER, MEDICARE ==
[~2019-02-12] VITALS: Ht 182.9 cm; Wt 2.0 kg
[~2019-02-12 06:56] MED LIST changes: +LANTUS INSULIN10 ML SC
[2019-02-12 06:58] VITALS: Ht 182.9 cm; Wt 2.0 kg
[2019-02-12 07:25] LABS: BASOPHILS 1.1 % (0-2); EOSINOPHILS 2.9 % (0-7); HEMATOCRIT 42.2 % (42.0-54.0); IMMATURE GRANULOCYTES 0.2 % (0-5); LYMPHOCYTES 36.4 % (15-50); MCH 27.7 pg (26.0-34.0); MCHC 33.2 g/dL (31.0-37.0); MCV 83.4 fL (80.0-100.0); MEAN PLATELET VOLUME 10.7 fL (7.4-10.4); MONOCYTES 9.1 % (2-11); NEUTROPHILS 50.3 % (40-80); PLATELET COUNT 251 10x3/uL (130-400); RBC 5.06 10x6/uL (4.20-6.10); RDW 15.2 % (11.5-14.5); WBC 6.3 10x3/uL (4.8-10.8)
[2019-02-12 07:40] LABS: ALBUMIN 2.8 g/dL (3.4-5.0); ANION GAP 12.1 mmol/L (8-16); BILIRUBIN - TOTAL 0.57 mg/dL (0.2-1.3); CALCIUM 8.7 mg/dL (8.5-10.1); CARBON DIOXIDE 30.2 mmol/L (21.0-32.0); CREATININE - SERUM 3.7 mg/dL (0.6-1.3); POTASSIUM - SERUM 3.3 mmol/L (3.5-5.1); PROTEIN - SERUM 7.7 g/dL (6.4-8.2)
[2019-02-12 10:35] VITALS: BP 124/60
== END 2019-02-12 10:35 | disposition home or self-care (01) ==
LOC: D.ER 06:56
PROVIDERS: Emergency Medicine
DX: R07.89 Other chest pain (principal); E87.6 Hypokalemia; J90 Pleural effusion, not elsewhere classified

== ENCOUNTER 2019-07-28 09:56 | Observation (INO) | payer OTHER, MEDICARE ==
[~2019-07-28] VITALS: Ht 182.9 cm; Wt 68.2 kg
--- NOTE | 2019-07-28 10:12 | NUR ---
FSBS 70 ON ARRIVAL
--- NOTE | 2019-07-28 10:14 | NUR ---
PLACED ON 2LPM, O2 91
[2019-07-28 10:33] LABS: BASOPHILS 0.7 % (0-2); EOSINOPHILS 0.5 % (0-7); HEMATOCRIT 30.7 % (42.0-54.0); HEMOGLOBIN 10.3 g/dL (13.5-17.5); IMMATURE GRANULOCYTES 0.3 % (0-5); LYMPHOCYTES 12.9 % (15-50); MCH 27.2 pg (26.0-34.0); MCHC 33.6 g/dL (31.0-37.0); MONOCYTES 10.2 % (2-11); NEUTROPHILS 75.4 % (40-80); PLATELET COUNT 230 10x3/uL (130-400); RBC 3.79 10x6/uL (4.20-6.10); WBC 10.8 10x3/uL (4.8-10.8)
[2019-07-28 10:40] VITALS: BP 164/87
[2019-07-28 10:51] LABS: INR 1.01 (0.85-1.17); PROTIME 12.8 SECONDS (11.6-15.0)
[2019-07-28 10:52] LABS: APTT 37.2 SECONDS (22.8-39.4)
[2019-07-28 11:00] VITALS: BP 155/85
[2019-07-28 11:00] LABS: ALBUMIN 2.2 g/dL (3.4-5.0); ALKALINE PHOSPHATASE 354 U/L (46-116); ALT (SGPT) 28 U/L (10-68); BILIRUBIN - TOTAL 0.46 mg/dL (0.2-1.3); CALC OSMOLALITY 282 mosm/kg (275-300); CALCIUM 8.6 mg/dL (8.5-10.1); CARBON DIOXIDE 28.7 mmol/L (21.0-32.0); CHLORIDE - SERUM 95 mmol/L (98-107); CREATININE - SERUM 6.6 mg/dL (0.6-1.3); GLUCOSE 79 mg/dL (74-106); POTASSIUM - SERUM 3.9 mmol/L (3.5-5.1); PROTEIN - SERUM 6.7 g/dL (6.4-8.2); SODIUM 135 mmol/L (136-145); UREA NITROGEN 51 mg/dL (7-18); eGFR NON AFRICAN AMERICAN 10 mL/min (90-120)
[2019-07-28 11:11] LABS: CKMB 2.9 U/L (0.0-3.6); CREATINE KINASE 80 UL (21-232); MAGNESIUM - SERUM 1.8 mg/dL (1.8-2.4); TROPONIN-I 0.036 ng/mL (0.000-0.060)
[2019-07-28 11:57] VITALS: BP 168/91
--- NOTE | 2019-07-28 11:58 | NUR ---
FSBS = 139. AT SIDE. VSS.
--- NOTE | 2019-07-28 13:06 | NUR ---
PATIENT HAS ROOM ASSIGNMENT, 210 . ATTEMPTED TO CALL REPORT, WITHOUT ANSWER TO CALL X 2. AALIYAH ANSWERED AND PLACED THIS RN ON HOLD.
--- NOTE | 2019-07-28 15:29 | NUR ---
I/O TO L HUMORAL HEAD DC, 2X2 AND BANDAID PLACED
[2019-07-28 16:13] VITALS: BP 149/89; BMI 20.4
[2019-07-28 20:00] VITALS: BP 187/93
--- NOTE | 2019-07-28 20:07 | NUR ---
RPEORT RECIEVED AND ROUNDING COMPLETE. PATIENT LAYING IN BED IN HIGH FOWLERS. PATIENT HAS A PIV TO THE LEFT JUGULAR. NO S/SX OF INFILTRATION OR INFECTION. PATIENT STATES NO NEEDS AT THIS TIME OTHER THEN A GLASS OF WATER. GAVE GLASS OF WATER. PATIENT HAS BILATERAL AKA. PATIENT IS A RIGHT ARM RESERVE. PATIENT IS SHOWING NO S/SX OF DISTRESS AT THIS TIME. CALL LIGHT WIHTIN REACH AND BED IN LOWEST LOCKED POSITION.
[2019-07-28 23:50] VITALS: BP 141/76
--- NOTE | 2019-07-29 00:14 | NUR ---
PAGED RENAL HOME SALES SERVICE PROFESSIONAL FOR PAIN MANGEMENT BECAUSE PATIENT AND HIS MOTHER STATES WHAT HE IS GETTING FOR ABD PAIN IS JUST NOT WORKING
[2019-07-29 04:30] VITALS: BP 133/56
[2019-07-29 05:07] LABS: BASOPHILS 0.8 % (0-2); EOSINOPHILS 0.2 % (0-7); HEMATOCRIT 29.7 % (42.0-54.0); HEMOGLOBIN 9.6 g/dL (13.5-17.5); IMMATURE GRANULOCYTES 0.3 % (0-5); LYMPHOCYTES 7.9 % (15-50); MCH 26.6 pg (26.0-34.0); MCHC 32.3 g/dL (31.0-37.0); MCV 82.3 fL (80.0-100.0); MEAN PLATELET VOLUME 11.6 fL (7.4-10.4); NEUTROPHILS 84.8 % (40-80); PLATELET COUNT 274 10x3/uL (130-400); RBC 3.61 10x6/uL (4.20-6.10); RDW 16.6 % (11.5-14.5)
[2019-07-29 05:14] LABS: WBC 19.5 10x3/uL (4.8-10.8)
[2019-07-29 05:22] LABS: ANION GAP 16.8 mmol/L (8-16); CALCIUM 8.5 mg/dL (8.5-10.1); CREATININE - SERUM 6.8 mg/dL (0.6-1.3); PHOSPHOROUS 5.7 mg/dL (2.5-4.9)
[2019-07-29 05:23] LABS: POTASSIUM - SERUM 4.8 mmol/L (3.5-5.1)
--- NOTE | 2019-07-29 07:17 | NUR ---
I have reviewed this patient and I concur with the Shift Assessment completed by the Licensed Practical Nurse today this shift.
[2019-07-29 09:02] VITALS: BP 105/59
--- NOTE | 2019-07-29 14:33 | NUR ---
I have reviewed this patient and I concur with the Shift Assessment completed by the Licensed Practical Nurse today this shift.
[2019-07-29 14:58] VITALS: Ht 182.9 cm; Wt 68.2 kg
[2019-07-29 17:47] VITALS: BP 135/79
--- NOTE | 2019-07-29 19:35 | NUR ---
REPORT RECEIVED, WILL CONTINUE POC. PATIENT IS A/OX4, SITTING UP IN BED. RR EVEN AND UNLABORED ON ROOM AIR. NO S/SX OF DISTRESS NOTED. PATIENT HAS IV TO LEFT EXTERNAL JUGULAR WITH VANC INFUSING. IV PATENT, DRESSING C/D/I. PATIENT IS BILATERAL ABOVE THE KNEE AMPUTEE. PATIENT HAS FISTULA TO RIGHT ARM. PATIENT DENIES NEEDS AT THIS TIME. FAMILY AT BEDSIDE. CALL LIGHT IN REACH, BED LOCKED AND LOWERED. WILL CTM.
[2019-07-29 20:00] VITALS: BP 118/66
--- NOTE | 2019-07-29 22:00 | NUR ---
PATIENT C/O PAIN. PRN NORCO GIVEN. WILL CTM.
[2019-07-30] VITALS: BP 128/78
--- NOTE | 2019-07-30 03:54 | NUR ---
PATIENT C/O PAIN. PRN NORCO GIVEN. WILL CTM.
[2019-07-30 03:59] LABS: ANION GAP 17.3 mmol/L (8-16); CALCIUM 8.4 mg/dL (8.5-10.1); CARBON DIOXIDE 25.3 mmol/L (21.0-32.0); POTASSIUM - SERUM 4.6 mmol/L (3.5-5.1); VANCOMYCIN - RANDOM 11.8 ug/mL (10.0-20.0)
[2019-07-30 04:00] VITALS: BP 165/48
--- NOTE | 2019-07-30 04:00 | NUR ---
I have reviewed this patient and I concur with the Shift Assessment completed by the Licensed Practical Nurse today this shift.
--- NOTE | 2019-07-30 06:21 | NUR ---
PATIENT ACCIDENTIALLY PULLED OUT IV, CATH TIP INTACT.
[2019-07-30 07:08] LABS: BASOPHILS 2.9 % (0-2); EOSINOPHILS 1.2 % (0-7); HEMATOCRIT 28.9 % (42.0-54.0); HEMOGLOBIN 9.6 g/dL (13.5-17.5); IMMATURE GRANULOCYTES 0.3 % (0-5); LYMPHOCYTES 14.8 % (15-50); MCH 27.4 pg (26.0-34.0); MCHC 33.2 g/dL (31.0-37.0); MCV 82.6 fL (80.0-100.0); MEAN PLATELET VOLUME 11.1 fL (7.4-10.4); MONOCYTES 12.7 % (2-11); NEUTROPHILS 68.1 % (40-80); PLATELET COUNT 277 10x3/uL (130-400); RDW 16.9 % (11.5-14.5)
[2019-07-30 07:09] LABS: WBC 8.6 10x3/uL (4.8-10.8)
--- NOTE | 2019-07-30 07:30 | NUR ---
A/A/OX4. DENIES ANY PAIN OR DISCOMFORT AT PRESENT TIME AND NO REQUESTS VOICED. ASSESSMENT COMPLETED AND WILL CONTINUE POC. RESTING QUITELY IN BED WATCHING TV.
[2019-07-30] MEDS ORDERED: LEVOFLOXACIN500 MG PO (08:57)
[2019-07-30 12:30] VITALS: BP 118/69
--- NOTE | 2019-07-30 13:49 | NUR ---
DISCHARGE INSTRUCTIONS REVIEWED WITH PT AND VERBALIZES UNDERSTADING WITH NO QUESTIONS. LEFT FLOOR VIA W/C WITH PERSONAL BELONGINGS AND LEFT FACILITY VIA PRIVATE VEHICLE WITH HIS .
== END 2019-07-30 13:51 | disposition home or self-care (01) ==
LOC: OBSVTIME → D.ER 09:56 → OBSVTIME 12:59 → D.M2 12:59 → D.ER 12:59 → OBSVTIME 13:00 → D.M2 07-29 10:13
PROVIDERS: Family Medicine; ADMIT Internal Medicine; ATTEND Internal Medicine
DX: E11.649 Type 2 diabetes mellitus with hypoglycemia without coma (principal); I12.0 Hypertensive chronic kidney disease with stage 5 chronic kidney disease or end stage renal disease; E11.22 Type 2 diabetes mellitus with diabetic chronic kidney disease; N18.6 End stage renal disease; Z99.2 Dependence on renal dialysis; R41.82 Altered mental status, unspecified; I25.10 Atherosclerotic heart disease of native coronary artery without angina pectoris; E11.51 Type 2 diabetes mellitus with diabetic peripheral angiopathy without gangrene; D72.829 Elevated white blood cell count, unspecified; T68.XXXA Hypothermia, initial encounter; Z89.612 Acquired absence of left leg above knee